=== PATIENT | female | born 2000 | race Caucasian/White ===

== ENCOUNTER → 2023-12-19 16:46 | Outpatient (REF) | payer BC, SELFPAY | LOC: CLAB 16:46 | PROVIDERS: ATTENDING PHYSICIAN Nurse Practitioner Adult Health | DX: Z01.419 Encounter for gynecological examination (general) (routine) without abnormal findings (principal) | CPT/HCPCS: G0123 ==

== ENCOUNTER → 2024-12-23 07:14 | Outpatient (REF) | payer BC, SELFPAY ==
[2024-12-23 10:19] LABS: Hematocrit 37.3 % (37.0-47.0); Hemoglobin 13.0 g/dL (12.0-16.0); Mean Corp Hgb Conc. 34.9 g/dL (33.0-37.0); Mean Corpuscular Volume 84.0 fL (81.0-99.0); Nucleated Red Blood Cells % 0 %; Platelet Count 281 10^3/uL (130-400); Red Cell Dist. Width 12.2 % (11.5-14.5)
[2024-12-23 10:24] LABS: ALT (SGPT) 12 U/L (0-35); AST (SGOT) 17 U/L (14-36); Albumin 4.6 g/dl (3.5-5.0); Alkaline Phosphatase 69 U/L (38-126); Blood Urea Nitrogen 13 mg/dl (7-17); Calcium 9.6 mg/dl (8.4-10.2); Carbon Dioxide 25 mmol/L (22-30); Chloride 106 mmol/L (98-107); Glucose 90 mg/dl (70-99); HDL Cholesterol 73 mg/dl; LDL Cholesterol, Calculated 101 mg/dl; Potassium 4.2 mmol/L (3.5-5.1); Sodium 139 mmol/L (135-145); Total Protein 7.9 g/dl (6.3-8.2); Very Low Density Lipoprotein 23 mg/dl (0-30); eGFR > 60.00
[2024-12-23 12:30] LABS: Hepatitis B Surface Antigen Negative (Negative)
[2024-12-25 12:54] LABS: Varicella Zoster IgG (VZV) Positive
== END ==
LOC: HWLAB 07:14
PROVIDERS: ATTENDING PHYSICIAN Nurse Practitioner Adult Health
DX: Z11.59 Encounter for screening for other viral diseases (principal); Z01.84 Encounter for antibody response examination; Z11.1 Encounter for screening for respiratory tuberculosis; Z13.220 Encounter for screening for lipoid disorders
CPT/HCPCS: 36415; 80053; 80061; 84443; 85025; 86480; 86706; 86787; 87340

== ENCOUNTER → 2025-01-27 19:29 | Outpatient (REF) | payer BC, SELFPAY | LOC: CLAB 19:29 | PROVIDERS: ATTENDING PHYSICIAN Emergency Medicine | DX: L02.811 Cutaneous abscess of head [any part, except face] (principal) | CPT/HCPCS: 87070; 87075; 87205 ==

== ENCOUNTER → 2025-01-30 12:33 | Outpatient (REF) | payer BC, SELFPAY | LOC: HWRAD 12:33 | PROVIDERS: ATTENDING PHYSICIAN Radiology Diagnostic Radiology; FAMILY PHYSICIAN Nurse Practitioner Adult Health | DX: Z11.1 Encounter for screening for respiratory tuberculosis (principal) | CPT/HCPCS: 71046 ==

== ENCOUNTER → 2025-03-06 08:15 | Outpatient (REF) | payer BC, SELFPAY | LOC: HWLAB 08:15 | PROVIDERS: ATTENDING PHYSICIAN Nurse Practitioner Adult Health | DX: Z78.9 Other specified health status (principal) | CPT/HCPCS: 36415; 86706 ==